=== PATIENT | female | born 1990 | race Caucasian/White ===

== ENCOUNTER 2022-09-14 08:10 | Outpatient (CLI) | payer BC, OTHER, SELFPAY ==
[2022-09-14 19:47] LABS: Basophils Absolute Auto 0.1 K/mm3 (0.0-0.1); Basophils Percent Auto 0.9 % (0.2-1.2); Eosinophils Absolute Auto 0.1 K/mm3 (0-0.3); Eosinophils Percent Auto 1.3 % (0-4.4); Hematocrit 42.5 % (37.0-47.0); Hemoglobin 13.8 g/dL (12.0-15.0); Immature Granulocyte Absolute 0.01 K/mm3 (0.00-0.031); Immature Granulocyte Percent A 0.2 % (0-0.5); Lymphocytes Absolute Auto 1.91 K/mm3 (0.9-3.2); Lymphocytes Percent Auto 36.2 % (18.3-44.2); Mean Corpuscular HGB Conc 32.5 g/dl (32-36); Mean Corpuscular Hemoglobin 30.1 pg (26-34); Mean Corpuscular Volume 92.6 fl (80-100); Mean Platelet Volume 10.2 fl (7.4-10.4); Monocytes Absolute Auto 0.4 K/mm3 (0.1-0.6); Monocytes Percent Auto 8.1 % (2.6-8.5); Neutrophils Absolute Auto 2.8 K/mm3 (1.3-6.7); Neutrophils Percent Auto 53.3 % (45.5-73.1); Platelet Count Result 245 k/mm3 (150-375); Red Blood Count 4.59 M/mm3 (4.2-5.4); Red Cell Distribution Width 12.1 % (11.5-14.5); White Blood Count 5.3 K/mm3 (4.5-10.0)
[2022-09-14 20:29] LABS: Alanine Aminotransferase 18 U/L (6-35); Albumin Level 4.6 g/dL (3.5-5.1); Alkaline Phosphatase 46 U/L (38-126); Anion Gap 12 mmol/L (8-16); Aspartate Amino Transferase 29 U/L (14-36); Bilirubin,Total 0.7 mg/dL (0.2-1.3); Blood Urea Nitrogen 11 mg/dL (7-17); Calcium 8.7 mg/dL (8.4-10.2); Carbon Dioxide 25 mmol/L (22-30); Chloride 103 mmol/L (98-107); Cholesterol 146 mg/dL (0-200); Estimated Glomerular Filt Rate > 60; Glucose 72 mg/dL (65-110); HDL Direct 67 mg/dL; Potassium 3.7 mmol/L (3.4-5.0); Sodium 140 mmol/L (137-145); Triglycerides 42 mg/dL (<150)
[2022-09-14 20:40] LABS: LDL Cholesterol Direct 51 mg/dL
== END 2022-09-14 08:11 | disposition home or self-care (01) ==
LOC: ANHGOSHLAB 08:14
PROVIDERS: PCP Family Medicine; Visit Provider Family Medicine
DX: Z00.00 Encounter for general adult medical examination without abnormal findings (principal)
CPT/HCPCS: 36415; 80053; 80061; 85025

== ENCOUNTER 2023-06-15 17:30 | Emergency (ER) | payer OTHER, SELFPAY ==
[2023-06-15 17:39] VITALS: BP 131/86; PULSE 58; RESP 16; TEMP 37.3; O2SAT 100
--- NOTE | 2023-06-15 18:33 | ED.URI ---
HPI - URI/Sore Throat General Chief Complaint: Upper Respiratory Infection Stated Complaint: Cold Symptoms Time Seen by Provider: 06/15/23 18:20 Source: patient, RN notes reviewed and old records reviewed Mode of arrival: ambulatory Limitations: no limitations History of Present Illness HPI Narrative: 33-year-old female to [facility] for complaint mom sinus congestion, nasal drainage, sore generalized body aches intermittent hoarseness low-grade for 3 days. Patient endorsing right ear pain that began this morning. 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 Patient able to tolerate fluids by mouth. No acute distress. Related Data Allergies Allergy/AdvReac Type Severity Reaction Status Date / Time Sulfa (Sulfonamide Allergy Intermediate hives Verified 06/15/23 18:28 Antibiotics) Review of Systems Review of Systems: All systems reviewed & are unremarkable except as noted in HPI and below Constitutional: Constitutional: Reports as per HPI, Reports body ache(s), Reports chills and Reports fatigue Eyes: Eyes: Reports no additional eye complaints ENT: Reports as per HPI, Reports otalgia ( Right), Reports hoarseness, Reports nasal congestion, Reports nasal discharge and Reports sore throat Cardiovascular: Cardiovascular: Reports no additional cardiovascular complaints, Denies chest pain and Denies dyspnea Respiratory: Respiratory: Reports no additional respiratory complaints, Reports cough and Denies dyspnea Musculoskeletal: Musculoskeletal: Reports as per HPI and Reports myalgias Neurologic: Reports system reviewed and no additional complaints, except as documented Psychiatric: Psychiatric: Reports no additional psychiatric complaints PMFSH Past Medical History Medical History Lattice degeneration Preeclampsia Family History Family History Father Alcoholism Hypertension Mother Hypertension Social History Social History Social History: Smoking status: Never smoker Second hand tobacco smoke exposure: No Alcohol intake: current Drinks per week: 2 Substance use: never Substance use type: does not use Lack of Transportation: No Lack of Food: Never True Current Housing: I Have Housing Concerned About Future Housing: No Difficulty Paying Gas/Electric Bills: No Difficulty Paying for Meds: No Currently Unemployed: No Education: Master's Degree or Higher Difficulty w/ Childcare or Family Care: No Living arrangements: with family Occupation/Education: occupation Additional occupation/education comments: Teacher, [employer] Gender identity (if verbalized by the patient): Female Sexual Orientation (if Verbalized by the Patient): Straight or Heterosexual Agree to blood products: Yes Comments At the time of my signature, I reviewed and agree with the nursing past medical, surgical, social, and family history. There is no relevant family history pertinent to the patient complaint. Exam Const: General: cooperative, no acute distress, alert, ill appearing acutely, tired appearing, uncomfortable, well groomed and well nourished Nutritional Appearance: well nourished Orientation/consciousness: patient oriented x3 Limitations: no limitations HENMT: Head: normal to inspection Ears: external ears normal, TM normal on the left, Abnormal EAC present cerumen impaction on the right and TM abnormal ( after cerumen removal) bulging on the right, dull on the right and with fluid behind the TM on the right ( right) Face/Nose/Sinus: Normal external nose present, Abnormal mucous membranes and turbinates present boggy bilateral and erythematous bilateral, normal facial exam, No erythema and No edema Face and sinus: normal facial exam, no erythema and no
== END 2023-06-15 18:37 | disposition home or self-care (01) ==
PROVIDERS: Emergency Provider Nurse Practitioner Family; PCP Family Medicine
DX: H66.91 Otitis media, unspecified, right ear (principal); H61.21 Impacted cerumen, right ear; Z20.822 Contact with and (suspected) exposure to COVID-19
CPT/HCPCS: 69210; 87426; 87804; 87880; 99213; G0463

== ENCOUNTER 2023-10-19 18:10 | Emergency (ER) | payer OTHER, SELFPAY ==
[2023-10-19 18:19] VITALS: BP 129/81; PULSE 54; RESP 16; TEMP 36.6; O2SAT 100
[2023-10-19 18:22] VITALS: BP 129/81; PULSE 54; RESP 16; TEMP 36.6; O2SAT 100
--- NOTE | 2023-10-19 18:27 | ED.GENADULT ---
HPI - General Adult General Chief complaint: Skin/Abscess/Foreign Body Stated complaint: Spider Bite Time Seen by Provider: 10/19/23 18:22 Source: patient, RN notes reviewed and old records reviewed Mode of arrival: ambulatory Limitations: no limitations History of Present Illness HPI narrative: 33-year-old female to [facility] for complaint of suspected spider bite to left posterior lower thigh. Patient endorses redness, warmth, discomfort. Patient denies nausea, myalgias, dizziness, pertinent medical history, fever. Patient able to tolerate fluids by mouth. Respirations even and nonlabored. Patient in no acute distress. Related Data Home Medications Medication Instructions Recorded Confirmed cetirizine 10 mg capsule (Zyrtec) 10 mg PO DAILY PRN Allergy Symptoms 09/09/23 10/19/23 levonorgestrel 21 mcg/24 hr (up to 1 device intrauterine ONCE 09/21/23 10/19/23 8 years) 52 mg intrauterine device (Mirena) Allergies Allergy/AdvReac Type Severity Reaction Status Date / Time Sulfa (Sulfonamide Allergy Intermediate hives Verified 09/21/23 10:04 Antibiotics) Review of Systems Review of Systems: All systems reviewed & are unremarkable except as noted in HPI and below Constitutional: Constitutional: Reports no additional constitutional complaints Eyes: Eyes: Reports no additional eye complaints ENT: Reports system reviewed and no additional complaints, except as documented Cardiovascular: Cardiovascular: Reports no additional cardiovascular complaints, Denies chest pain and Denies dyspnea Respiratory: Respiratory: Reports no additional respiratory complaints, Denies cough and Denies dyspnea Musculoskeletal: Musculoskeletal: Reports no additional musculoskeletal complaints Integumentary/Breasts: Skin/Breast: Reports as per HPI, Reports swelling, Reports erythema and Reports wounds Neurologic: Reports as per HPI, Denies numbness, Denies Sensory deficit (Neuro), Denies tingling and Denies weakness Psychiatric: Psychiatric: Reports no additional psychiatric complaints PMFSH Past Medical History Medical History Lattice degeneration Preeclampsia Family History Family History Father Alcoholism Hypertension Mother Hypertension Social History Social History Social History: Smoking status: Never smoker Second hand tobacco smoke exposure: No Alcohol intake: current Drinks per week: 2 Substance use: never Substance use type: does not use Lack of Transportation: No Lack of Food: Never True Current Housing: I Have Housing Concerned About Future Housing: No Difficulty Paying Gas/Electric Bills: No Difficulty Paying for Meds: No Currently Unemployed: No Education: Master's Degree or Higher Difficulty w/ Childcare or Family Care: No Living arrangements: with family Occupation/Education: occupation Additional occupation/education comments: Teacher, [employer] Gender identity (if verbalized by the patient): Female Sexual Orientation (if Verbalized by the Patient): Straight or Heterosexual Agree to blood products: Yes Comments At the time of my signature, I reviewed and agree with the nursing past medical, surgical, social, and family history. There is no relevant family history pertinent to the patient complaint. Exam Const: General: cooperative, healthy appearing, comfortable, no acute distress, well developed, alert, well groomed and well nourished Nutritional Appearance: well nourished Orientation/consciousness: patient oriented x3 Limitations: no limitations HENMT: Head: normal to inspection Ears: external ears normal Face/Nose/Sinus: Normal external nose present, Normal nares present, normal facial exam, No erythema and No edema Face and sinus: abram
== END 2023-10-19 18:41 | disposition home or self-care (01) ==
PROVIDERS: Emergency Provider Nurse Practitioner Family; PCP Family Medicine
DX: S70.362A Insect bite (nonvenomous), left thigh, initial encounter (principal); W57.XXXA Bitten or stung by nonvenomous insect and other nonvenomous arthropods, initial encounter
CPT/HCPCS: 99213; G0463

== ENCOUNTER 2023-12-26 17:14 | Emergency (ER) | payer BC, SELFPAY ==
--- NOTE | 2023-12-26 17:25 | ED.GENADULT ---
HPI - General Adult General Chief complaint: Skin/Abscess/Foreign Body Stated complaint: Skin Issues on Right Wrist Time Seen by Provider: 12/26/23 17:25 Source: patient Mode of arrival: ambulatory Limitations: no limitations History of Present Illness HPI narrative: 33-year-old female patient presents to [facility] with complaints of sudden bruising to the right wrist. Patient states that she was scratching her right wrist and then about an hour ago she noticed that it was kind achy and looked down and noticed some purple bruising to the anterior side of the right wrist. Denies knocking it on anything or any acute trauma. Denies any issues with range of motion. Related Data Home Medications Medication Instructions Recorded Confirmed cetirizine 10 mg capsule (Zyrtec) 10 mg PO DAILY PRN Allergy Symptoms 09/09/23 10/19/23 levonorgestrel 21 mcg/24 hr (up to 1 device intrauterine ONCE 09/21/23 10/19/23 8 years) 52 mg intrauterine device (Mirena) Allergies Allergy/AdvReac Type Severity Reaction Status Date / Time Sulfa (Sulfonamide Allergy Intermediate hives Verified 09/21/23 10:04 Antibiotics) Review of Systems Review of Systems: CONSTITUTIONAL: Denies fever, chills, or sweats. EYES: Denies visual changes, redness, or discharge. ENT: Denies rhinorrhea, congestion, sore throat, or otalgia. CARDIOVASCULAR: Denies chest pain, palpitations, or edema. RESPIRATORY: Denies cough or dyspnea. GASTROINTESTINAL: Denies abdominal pain, nausea, vomiting, or diarrhea. GENITOURINARY: Denies dysuria or hematuria. SKIN: Denies rash or itching. Positive bruising right wrist MUSCULOSKELETAL: Denies back pain, joint pain, or myalgia. NEUROLOGIC: Denies headache, numbness, or weakness. PSYCHIATRIC: Denies anxiety or depression. [facility] Past Medical History Medical History Lattice degeneration Preeclampsia Family History Family History Father Alcoholism Hypertension Mother Hypertension Social History Social History Social History: Smoking status: Never smoker Second hand tobacco smoke exposure: No Alcohol intake: current Drinks per week: 2 Substance use: never Substance use type: does not use Lack of Transportation: No Lack of Food: Never True Current Housing: I Have Housing Concerned About Future Housing: No Difficulty Paying Gas/Electric Bills: No Difficulty Paying for Meds: No Currently Unemployed: No Education: Master's Degree or Higher Difficulty w/ Childcare or Family Care: No Living arrangements: with family Occupation/Education: occupation Additional occupation/education comments: Teacher, [employer] Gender identity (if verbalized by the patient): Female Sexual Orientation (if Verbalized by the Patient): Straight or Heterosexual Agree to blood products: Yes Comments At the time of my signature I agree with nursing past medical history, surgical, social, and family history. There is no relevant family history pertinent to the presenting complaint. Exam Narrative: GENERAL: Well-appearing, well-nourished, and in no acute distress. HEAD: Normocephalic, atraumatic. EYES: PERRLA and EOMI. ENT: Nares clear, no rhinorrhea or epistaxis. Mucous membranes moist. NECK: Supple. No lymphadenopathy CHEST: Clear to auscultation. No respiratory distress. HEART: Regular rate and rhythm. No murmur heard. Normal peripheral pulses. ABDOMEN: Soft, nontender, nondistended, normal active bowel sounds. EXTREMITIES: Normal range of motion. No edema.Positive ecchymosis measuring approximately 3 cm by 1/2 cm to the anterior right wrist. No warmth present. No open wounds present. Patient has excellent range of motion to the wrist. SKIN: Warm, dry, no rash. NEURO: No focal deficits. Alert and oriented x3. Course Course Level of Care: Express Care Visit Vital Signs Vital signs: Vital Signs Temperature 36.8 C 12/26/23 17:29 Pulse Rate 58 L 12/26/23 17:29 Respiratory Rate 16 12/26/23 17:29 Blood Pressure 119/79 12/26/23 17:29 Pulse Oximetry 100 12/26/23 17:29 Temperature 36.8 C 12/26/23 17:29 Pulse Rate 58 L 12/26/23 17:29 Respiratory Rate 16 12/26/23 17:29 Blood Pressure 119/79 12/26/23 17:29 Pulse Oximetry 100 12/26/23 17:29 Vital signs reviewed. Medical Decision Making MDM Narrative Medical decision making narrative: discussed with patient that it does appear to be a bruise to the right wrist area unsure exactly how this could have occurred but typically this is caused by soft tissue injury or capillary is pursing on there the skin. Discussed with patient to apply ice the area may take Tylenol for pain would avoid ibuprofen at this time. And if the random bruising continues highly recommend that she follow-up with her primary doctor. Differential Diagnosis Differential Diagnosis: Differential diagnosis: Contact dermatitis, poison benjamin, poison sumac, psoriasis, eczema, allergic reaction, drug reaction, scabies, tinea syphilis, lung disease, viral exanthema, pityriasis, erythema multiforme. Vital Signs Vital Signs: Vital Signs Temperature 36.8 C 12/26/23 17:29 Pulse Rate 58 L 12/26/23 17:29 Respiratory Rate 16 12/26/23 17:29 Blood Pressure 119/79 12/26/23 17:29 Pulse Oximetry 100 12/26/23 17:29 Temperature 36.8 C 12/26/23 17:29 Pulse Rate 58 L 12/26/23 17:29 Respiratory Rate 16 12/26/23 17:29 Blood Pressure 119/79 12/26/23 17:29 Pulse Oximetry 100 12/26/23 17:29 Critical Care Time Critical Care Time Critical Care Time: No Discharge Plan Discharge Clinical Impression: Traumatic ecchymosis of right wrist Patient Disposition: Home, Self-Care Condition: Stable Instructions: Antibiotic Form, Ecchymosis (ED) Additional Instructions: use ice compress to right wrist to see if this decreases the bruising and bleeding under the skin If you continue to have bruising in all places please see your primary doctor for further evaluation and treatment. Prescriptions: No Action cephalexin 500 mg capsule 500 mg PO Q12H Qty: 14 0RF prednisone 20 mg tablet See Rx Instructions .ROUTE .COMPLEX Qty: 9 0RF Rx Instructions: Take 40mg x3 days, 20mg x3 days Mirena 21 mcg/24 hr (8 yrs) 52 mg intrauterine device 1 device intrauterine ONCE Rx Instructions: as a single dose Zyrtec 10 mg capsule 10 mg PO DAILY PRN (Reason: Allergy Symptoms) Follow-up/Referrals: Christy Davis MD [Primary Care Provider] - Time of Disposition: 17:37
[2023-12-26 17:29] VITALS: BP 119/79; PULSE 58; RESP 16; TEMP 36.8; O2SAT 100
== END 2023-12-26 17:57 | disposition home or self-care (01) ==
PROVIDERS: Emergency Provider Nurse Practitioner Family; PCP Family Medicine
DX: S60.211A Contusion of right wrist, initial encounter (principal); X58.XXXA Exposure to other specified factors, initial encounter
CPT/HCPCS: 99212; G0463

== ENCOUNTER 2024-03-13 08:12 | Emergency (ER) | payer BC, SELFPAY ==
[2024-03-13 08:27] VITALS: BP 121/68; PULSE 69; RESP 18; TEMP 36.8; O2SAT 99
--- NOTE | 2024-03-13 08:33 | ED.EAR ---
HPI - Ear Problem General Chief complaint: Ear Stated complaint: Ear Pain Time Seen by Provider: 03/13/24 08:33 Source: patient Mode of arrival: ambulatory Limitations: no limitations History of Present Illness HPI Narrative: 33-year-old female presents with complaint of right ear pain for 1 day. Reports nasal congestion for 3-4 days. Afebrile. Not taking any [id number] medications to treat congestion. Reports muffled hearing today. All systems reviewed and negative except as noted above. Related Data Home Medications ?Medication ?Instructions ?Recorded ?Confirmed ?Last Taken ?Type cetirizine 10 mg capsule (Zyrtec) 10 mg PO DAILY PRN Allergy Symptoms 09/09/23 12/26/23 Unknown History levonorgestrel (Mirena) 1 device intrauterine ONCE 09/21/23 12/26/23 Unknown History Allergies Allergy/AdvReac Type Severity Reaction Status Date / Time Sulfa (Sulfonamide Allergy Intermediate hives Verified 03/13/24 08:31 Antibiotics) Review of Systems Review of Systems: CONSTITUTIONAL: Denies fever, chills, or sweats. EYES: Denies visual changes, redness, or discharge. ENT: Reports rhinorrhea, congestion, right ear pain. Denies sore throat CARDIOVASCULAR: Denies chest pain, palpitations, or edema. RESPIRATORY: Denies cough or dyspnea. GASTROINTESTINAL: Denies abdominal pain, nausea, vomiting, or diarrhea. GENITOURINARY: Denies dysuria or hematuria. SKIN: Denies rash or itching. MUSCULOSKELETAL: Denies back pain, joint pain, or myalgia. NEUROLOGIC: Denies headache, numbness, or weakness. PSYCHIATRIC: Denies anxiety or depression. All other systems reviewed are negative, except as documented in HPI. [facility] Past Medical History Medical History Lattice degeneration Preeclampsia Family History Family History Father Alcoholism Hypertension Mother Hypertension Social History Social History Social History: Smoking status: Never smoker Second hand tobacco smoke exposure: No Alcohol intake: current Drinks per week: 2 Substance use: never Substance use type: does not use Lack of Transportation: No Lack of Food: Never True Current Housing: I Have Housing Concerned About Future Housing: No Difficulty Paying Gas/Electric Bills: No Difficulty Paying for Meds: No Currently Unemployed: No Education: Master's Degree or Higher Difficulty w/ Childcare or Family Care: No Living arrangements: with family Occupation/Education: occupation Additional occupation/education comments: Teacher, [employer] Gender identity (if verbalized by the patient): Female Sexual Orientation (if Verbalized by the Patient): Straight or Heterosexual Agree to blood products: Yes Comments At time of signature, agree with nursing past medical, surgical, social and family history. There is no relevant family history pertinent to the presenting complaint. Exam Narrative: GENERAL: This is a well-nourished, well-developed patient, in no apparent distress. HEAD: normocephalic, atraumatic. EYES: PERRL. Sclera clear/white. Vision is grossly intact. EARS: External ears normal, auditory canals clear and without drainage, erythema to right TM. Left TM normal. Hearing grossly intact. NOSE: External nose normal with no obvious nasal discharge, nares without redness, no rhinorrhea. THROAT: Mucous membranes moist, posterior pharynx clear. NECK: Neck supple, non-tender without lymphadenopathy, masses or thyromegaly. CARDIOVASCULAR: Regular rate and rhythm without murmurs, gallops, or rubs. RESPIRATORY: Clear to auscultation. Breath sounds equal bilaterally. No wheezes, rales, or rhonchi. SKIN: warm, Dry, intact with no suspicious lesions or rash, good texture and turgor. NEURO: awake, alert, and oriented to person, place and time. There were no obvious focal neurologic abnormalities. EXTREMITIES: No joint tenderness, effusion, or edema noted. Course Course Level of Care: Express Care Visit Vital Signs Vital signs: Vital Signs Temperature 36.8 C 03/13/24 08:27 Pulse Rate 69 03/13/24 08:27 Respiratory Rate 18 03/13/24 08:27 Blood Pressure 121/68 03/13/24 08:27 Pulse Oximetry 99 03/13/24 08:27 Oxygen Delivery Room Air 03/13/24 08:27 Temperature 36.8 C 03/13/24 08:27 Pulse Rate 69 03/13/24 08:27 Respiratory Rate 18 03/13/24 08:27 Blood Pressure 121/68 03/13/24 08:27 Pulse Oximetry 99 03/13/24 08:27 Oxygen Delivery Room Air 03/13/24 08:27 Reviewed Medical Decision Making MDM Narrative Medical decision making narrative: Patient is aware of diagnosis, understands and agrees to treatment plan. Anticipatory guidance given. Patient agrees to follow-up as directed and is aware of reasons to seek care at the emergency department. Portions of this record may have been created with voice recognition software Vital Signs Vital Signs: Vital Signs Temperature 36.8 C 03/13/24 08:27 Pulse Rate 69 03/13/24 08:27 Respiratory Rate 18 03/13/24 08:27 Blood Pressure 121/68 03/13/24 08:27 Pulse Oximetry 99 03/13/24 08:27 Oxygen Delivery Room Air 03/13/24 08:27 Temperature 36.8 C 03/13/24 08:27 Pulse Rate 69 03/13/24 08:27 Respiratory Rate 18 03/13/24 08:27 Blood Pressure 121/68 03/13/24 08:27 Pulse Oximetry 99 03/13/24 08:27 Oxygen Delivery Room Air 03/13/24 08:27 Discharge Plan Discharge Clinical Impression: Acute right otitis media Patient Disposition: Home, Self-Care Condition: Stable Instructions: Antibiotic Form, Ear Infection (ED) Additional Instructions: Take antibiotic as prescribed to treat right ear infection. Take ibuprofen or Tylenol every 6-8 hours treat pain. If you continue to have muffled hearing and nasal congestion start an tmkt-[id number] antihistamine such as Claritin or Zyrtec and also an aerx-yzx-erldeqy nasal spray such as Flonase or Nasacort. Drink at least 64 oz water a day. Follow-up with your primary care physician if symptoms are not improving. Patient Language: Serbian Prescriptions: New amoxicillin 875 mg tablet 875 mg PO Q12H 10 Days Qty: 20 0RF No Action Mirena 21 mcg/24 hr (8 yrs) 52 mg intrauterine device 1 device intrauterine ONCE Rx Instructions: as a single dose Zyrtec 10 mg capsule 10 mg PO DAILY PRN (Reason: Allergy Symptoms) Follow-up/Referrals: Christy Davis MD [Primary Care Provider] - Time of Disposition: 08:39
== END 2024-03-13 08:41 | disposition home or self-care (01) ==
PROVIDERS: Emergency Provider Nurse Practitioner Family; PCP Family Medicine
DX: H66.91 Otitis media, unspecified, right ear (principal)
CPT/HCPCS: 99213; G0463